=== PATIENT | male | born 1990 | race Two or more races ===

== ENCOUNTER 2017-06-29 11:18 | Emergency (ER) | payer OTHER ==
--- NOTE | 2017-06-29 11:42 | EDPHY ---
H & P Stated Complaint: Injury to right thigh on Thursday while playing football. Time Seen by Provider: 06/29/17 11:41 HPI/ROS: HPI: This is a 27-year-old male who presents with Chief Complaint: Injury to right thigh on Thursday while playing football. Location: Right thigh Quality: Injury Duration: 2 Days ago Signs and Symptoms: No bleeding, no radiation, no numbness, no weakness, no tingling, no incontinence, no decreased range of motion, no swelling, no pain, no fever Timing: Severity: Context: Patient was playing football yesterday and hit in the middle anterior portion of his right thigh with immediate constant pain by another points helmet. Reports that he is unable to bear weight or extend at his knee. He reports that pain is increased with touching the area in his mid anterior thigh as well as with attempting to weight bear. He reports that he feels the most relief when his legs and full extension. Denies LOC/head injury/neck pain/ dizziness/nausea/vomiting/amnesia. Reports tetanus up-to-date. Patient has no primary care provider. He has not take any [id number] pain medications or applied ice. Modifying Factors: None Comment: ROS: see HPI Constitutional: No fever, no chills, no weight loss Eyes: No blurred vision Respiratory: No shortness of breath, no cough Cardiovascular: No chest pain Gastrointestinal: No nausea, no vomiting no diarrhea Genitourinary: No dysuria Extremities: No myalgias Neurologic: No weakness, no numbness Skin: No rashes Hematologic: No bruising, no bleeding MEDICAL/SURGICAL/SOCIAL HISTORY: Medical history: Generally healthy. Does not take any regular medications. Surgical history: Denies Social history: Employed at [employer]. Family history noncontributory CONSTITUTIONAL: awake and alert, no obvious distress HEENT: Atraumatic and normocephalic. NECK: supple, no midline tenderness, flexion 45 degrees, extension 45 degrees, right and left lateral flexion 45 degrees. No meningismus. Cardiovascular: Normal S1/S2, regular rate, regular rhythm, without murmur rub or gallop. PULMONARY/CHEST: Symmetrical and nontender. no crepitus. Clear to auscultation bilaterally. Good air movement. No accessory muscle usage. ABDOMEN: Soft, nondistended, nontender, no ecchymosis. PELVIC: no pain with rocking; bilateral hips flexion 125 degrees, extension 30 degrees, with no pain internal rotation and no pain external rotation. BACK: No midline tenderness, no paraspinous spasm, deep tendon reflexes 2/2, no pain with straight leg raise, No foot drop. Achilles reflexes are equal bilaterally. Able to walk on heels and toes without difficulty. EXTREMITIES: 2/2 pulses, strength 5/5, right HIP: Flexion to 125, extension to 115, hyper extension to 15, abduction to 45. No Pain with internal rotation and external rotation. No tenderness over greater trochanter. Right KNEE: no effusion, no medial and lateral joint line tenderness, full extension to 180. No pain with varus and valgus exam. No pain with anterior drawer or posterior drawer test. Patient is unable to flex the knee. Secondary to pain he keeps it in full extension. No palpable deformities noted in the distal portion of the quadriceps muscle. Patella is not hypermobile. DIP/PIP/MCP flexion/extension intact with good light touch sensation. no deformities, no clubbing, no cyanosis or edema. NEUROLOGICAL: no focal neuro deficits. GCS 15. Light touch sensation intact. SKIN: Warm and dry, no erythema. no rash. Good capillary refill. Source: Patient Exam Limitations: No limitations - Personal History Current Tetanus Diphtheria and Acellular Pertussis (TDAP): Yes - Medical/Surgical History Hx Asthma: No Hx Chronic Respiratory Disease: No Hx Diabetes: No Hx Cardiac Disease: No Hx Renal Disease: No Hx Cirrhosis: No Hx Alcoholism: No Hx HIV/AIDS: No Hx Splenectomy or Spleen Trauma: No Other PMH: Denies - Social History Smoking Status: Never smoked Constitutional: Initial Vital Signs Temperature (C) 36.6 C 06/29/17 11:19 Heart Rate 51 L 06/29/17 11:19 Respiratory Rate 18 06/29/17 11:19 Blood Pressure 138/90 H 06/29/17 11:19 O2 Sat (%) 98 06/29/17 11:19 O2 Delivery Mode Room Air Allergies/Adverse Reactions: No Known Allergies Allergy (Unverified 06/29/17 11:23) Home Medications: Medication Instructions Recorded oxyCODONE/APAP 5/325 [Percocet 1 - 2 tab PO Q4H PRN #10 tab 06/29/17 5/325 (*)] Medical Decision Making - Diagnostics Imaging Results: Imaging Impressions Femur X-Ray 06/29/17 11:55 Impression: Negative. 2. Right Knee , 4 views History: Pain post trauma. Football injury. Findings: Identified only on the oblique view is a tiny bony density projecting between the upper fibular tip and the adjacent tibial plateau. No other potential fracture, knee joint effusion, arthritis or malalignment is identified. Impression: Possible chip involving the fibular apex. Otherwise negative. Knee X-Ray 06/29/17 11:55 Impression: Negative. 2. Right Knee , 4 views History: Pain post trauma. Football injury. Findings: Identified only on the oblique view is a tiny bony density projecting between the upper fibular tip and the adjacent tibial plateau. No other potential fracture, knee joint effusion, arthritis or malalignment is identified. Impression: Possible chip involving the fibular apex. Otherwise negative. Procedures: Procedure: Splint placement. A right knee immobilizer was applied by the Emergency Room denture laboratory technician. After application of the splint I returned and re-examined the patient. The splint was adequately immobilizing the joint and distal to the splint the patient's circulation and sensation was intact. ED Course/Re-evaluation: Right knee x-ray and right femur x-ray ordered Given Percocet x2 with adequate relief of pain X-ray my read shows Possible chip involving the fibular apex. Concern for quadriceps strain versus complete quadriceps tear versus partial quadriceps tear Placed in knee immobilizer and given crutches. Nonweightbearing status on right lower extremity. Ortho follow-up. RICE. No signs of neurovascular compromise/tenting of skin/compartment syndrome/ extremities and joints examined above and below area of concern and are neurovascularly intact. This patient was seen under the supervision of my secondary supervising physician. I evaluated care for this patient independently. Differential Diagnosis: Differential diagnosis includes but is not limited to quadriceps strain, quadriceps rupture, patella fracture, femur fracture, tendon injury, ligament injury, nerve injury, hematoma. - Data Points Medications Given: Discontinued Medications Oxycodone/Acetaminophen (Percocet 5/325) 2 tab PO EDNOW ONE Stop: 06/29/17 12:03 Last Admin: 06/29/17 12:06 Dose: 2 tab Departure - Departure Disposition: Home, Routine, Self-Care Clinical Impression: Injury of quadriceps muscle, Avulsion fracture of anterior fibula Condition: Good Instructions: Knee Immobilizer (ED), Tendon Repair (DC) Additional Instructions: Wear the knee immobilizer while out of bed until seen by Orthopedics. Use crutches to aid ambulation. Nonweightbearing status on right lower extremity. Take Tylenol 650 mg every 4 hours and/or Ibuprofen 600 mg every 8 hours with food as needed for pain. Use Percocet every 6 hours as needed for severe/break through pain. Do not use Tylenol and Percocet concomitantly. Apply ice for 30 minutes at a time; 2-3 times per day for the next 1-2 days. X-rays today show tiny chip fragment at proximal fibula along with concerns of quadriceps injury versus quadriceps partial versus complete tear. Follow up with Orthopedics in 3-5 days at which time they will evaluate and recommend with you if conservative management versus surgery versus further imaging is indicated. Follow-Up: Please follow-up as noted above. Follow-up sooner if your condition worsens or if you develop any new problems. Call as soon as possible for an appointment. Be clear when you call for an appointment that this is an Emergency Department follow-up. Contact the Emergency Department if you have trouble arranging follow-up care. Our referrals are not based on your insurance network. When time allows, contact your insurance carrier to verify the referral physician is in your plan. If not, get a referral for an in-healthcare network consultant. Referrals: Mendoza Zamorano MD [Medical Doctor] - As per Instructions Stand Alone Forms: Work Excuse Prescriptions: oxyCODONE/APAP 5/325 [Percocet 5/325 (*)] 1 - 2 tab PO Q4H PRN #10 tab PRN Reason: Pain, Severe
[2017-06-29] MEDS ORDERED: OXYCODONE/APAP 5/325 TAB PO ONE (12:02)
[2017-06-29 13:30] VITALS: BP 150/80
== END 2017-06-29 13:30 | disposition home or self-care (01) ==
DX: S82.401A Unspecified fracture of shaft of right fibula, initial encounter for closed fracture (principal); S76.101A Unspecified injury of right quadriceps muscle, fascia and tendon, initial encounter; W21.01XA Struck by football, initial encounter; Y99.8 Other external cause status; Y93.61 Activity, american tackle football
CPT/HCPCS: L1830